=== PATIENT | female | born 2000 | race Caucasian/White ===

== ENCOUNTER 2025-03-31 09:56 | Inpatient (IN) | payer MEDICAID, OTHER ==
[~2025-03-31] VITALS: Ht 154.9 cm; Wt 40.8 kg
[2025-03-31] MEDS ORDERED: AMAN-24 PO (10:11)
[2025-03-31] MEDS ORDERED: ERGO500054 PO (10:11)
[2025-03-31] MEDS ORDERED: ASPI-1450 PO (10:11)
[2025-03-31] MEDS ORDERED: VALP250C48 PO (10:11)
[2025-03-31] MEDS ORDERED: GABA-1216 PO (10:11)
[2025-03-31] MEDS ORDERED: LEVO330T5 PO (10:11)
[2025-03-31] MEDS ORDERED: LEVE-71 PO (10:11)
[2025-03-31] MEDS ORDERED: QUET25TA PO ×2 (10:11)
[2025-03-31 10:17] LABS: PLATELET COUNT (AUTO) 172 K/uL (150-450); RED BLOOD CELL COUNT(AUTO) 4.95 MIL/uL (4.00-5.20); RED CELL DISTRIBUTION WIDTH 14.6 % (11.5-14.5); WHITE BLOOD COUNT (AUTO) 7.1 K/uL (4.5-11.0)
[2025-03-31 10:24] LABS: CALCIUM, TOTAL 9.5 mg/dL (8.8-10.5); CREATININE 0.83 mg/dL (0.60-1.30); GLOMERULAR FILTR. RATE CALC > 60 mL/min (>60); GLUCOSE,RANDOM 85 mg/dL (70-110); SODIUM SERUM 142 mmol/L (136-145); UREA NITROGEN, BLOOD 15 mg/dL (7-18)
[2025-03-31] MEDS ORDERED: ZOLPIDEM TARTRATE 5 MG TABLET PO PRN (12:15)
[2025-03-31 12:23] LABS: COVID AG,FIA SOURCE NASAL SWAB
[2025-03-31 12:44] LABS: SARS-COV2 (COVID) ANTIGEN,FIA Negative (Negative)
[2025-03-31 20:33] VITALS: O2SAT 96
[2025-03-31 21:59] VITALS: BP 92/78; PULSE 93; RESP 16; TEMP 97.6; O2SAT 100
[2025-04-01] MEDS ORDERED: DOCUSATE SODIUM 100 MG CAPSULE PO PRN (04:15)
[2025-04-01] MEDS ORDERED: MAGNESIUM HYDROXIDE SUSPENSION 30 ML UDCUP PO PRN (04:15)
[2025-04-01] MEDS ORDERED: PETROLATUM,WHITE 28 GM JELLY TP PRN (04:15)
[2025-04-01] MEDS ORDERED: ACETAMINOPHEN 325 MG TABLET PO PRN (04:15)
[2025-04-01] MEDS ORDERED: BACITRACIN 28 GM OINTMENT TP PRN (04:15)
[2025-04-01] MEDS ORDERED: IBUPROFEN 600 MG TABLET PO PRN (04:15)
[2025-04-01] MEDS ORDERED: BENZOCAINE/MENTHOL [CEPACOL] LOZENGE PO PRN (04:15)
[2025-04-01] MEDS ORDERED: ONDANSETRON 4 MG TABLET PO PRN (04:15)
[2025-04-01] MEDS ORDERED: LOPERAMIDE HCL 2 MG CAPSULE PO PRN (04:15)
[2025-04-01] MEDS ORDERED: ALBUTEROL SULFATE HFA 90 MCG/PUFF 8 GM INHALER IH PRN (04:15)
[2025-04-01] MEDS ORDERED: OMEPRAZOLE 20 MG CAPSULE PO PRN (04:15)
[2025-04-01] MEDS ORDERED: MAG HYDROX/ALUMINUM HYD/SIMETH ES 30 ML SUSPENSION UDCUP PO PRN (04:15)
[2025-04-01 08:20] LABS: CHOL/HDL RATIO 2.9 (3.9-5.7); LDL CHOL (CALC.) 77.0 mg/dL (0-130); VALPROIC ACID 17.0 mcg/mL (50-100)
[2025-04-01] MEDS: ASPIRIN 81 MG CHEWABLE TABLET PO SCH (08:59)
[2025-04-01] MEDS: CHOLECALCIFEROL (VIT D3) 50,000 UNITS [1,250 MCG] CAPSULE PO SCH (08:59)
[2025-04-01] MEDS: VALPROIC ACID 250 MG CAPSULE PO SCH (15:00)
[2025-04-01 15:42] VITALS: BP 108/73; PULSE 91; RESP 16; TEMP 98; O2SAT 98
[2025-04-01 21:37] VITALS: BP 89/58; PULSE 71; RESP 18; TEMP 98.2; O2SAT 98
[2025-04-02 09:04] VITALS: BP 89/62; PULSE 99; RESP 16; TEMP 98.2; O2SAT 99
[2025-04-02 15:49] LABS: APPEARANCE,URINE HAZY (CLEAR); GLUCOSE, URINE (UA) NEGATIVE (NEGATIVE); LEUKOCYTE ESTERASE ,URINE TRACE (NEGATIVE); NITRATE,URINE NEGATIVE (NEGATIVE); OCCULT BLOOD,URINE NEGATIVE (NEGATIVE); PH,URINE DRUG SCREEN 5.5 (5.0-8.0); SPECIFIC GRAVITIY, URINE 1.027 (1.003-1.030)
[2025-04-02 15:54] LABS: ALCOHOL, URINE DRUG SCREEN NEGATIVE (NEGATIVE); AMPHET/METH SCREEN,URINE NEGATIVE (NEGATIVE); BARBITURATE SCREEN, URINE NEGATIVE (NEGATIVE); CANNABINOID SCREEN,URINE NEGATIVE (NEGATIVE); COCAINE SCREEN,URINE NEGATIVE (NEGATIVE); METHADONE SCREEN, URINE NEGATIVE (NEGATIVE)
[2025-04-02 16:01] LABS: SQUAMOUS EPITHELIAL CELL,UR Few /LPF (None Seen)
[2025-04-02 21:46] VITALS: BP 91/59; PULSE 98; RESP 18; TEMP 97.7; O2SAT 98
[2025-04-03 10:01] VITALS: BP 105/74; PULSE 103; RESP 16; TEMP 97.9; O2SAT 98
[2025-04-03 21:14] VITALS: BP 101/62; PULSE 79; RESP 18; O2SAT 95
[2025-04-04 08:37] VITALS: BP 104/67; PULSE 83; RESP 16; TEMP 97.9; O2SAT 100
[2025-04-04] MEDS: LevOCARNitine 200 MG/ML 5 ML VIAL PO SCH (09:42)
[2025-04-04 22:58] VITALS: BP 102/66; PULSE 75; RESP 18; TEMP 98.5; O2SAT 98
[2025-04-05 10:05] VITALS: BP 91/53; PULSE 77; RESP 20; TEMP 98.6; O2SAT 98
[2025-04-05] MEDS ORDERED: [UNRECOGNIZED DRUG - CODE] PO (19:35)
[2025-04-05] MEDS ORDERED: VALP250C48 PO (19:35)
[2025-04-05] MEDS ORDERED: AMAN-24 PO (19:35)
[2025-04-05] MEDS ORDERED: ASPI-1450 PO (19:35)
[2025-04-05] MEDS ORDERED: LEVE-71 PO (19:35)
[2025-04-05] MEDS ORDERED: QUET100T34 PO (19:35)
[2025-04-05 20:10] VITALS: BP 95/55; PULSE 83; RESP 20; TEMP 97.7; O2SAT 99
[2025-04-06 08:25] VITALS: BP 101/61; PULSE 65; RESP 17; TEMP 97.7; O2SAT 97
== END 2025-04-06 12:44 | disposition home or self-care (01) | DRG 750 ==
LOC: EMS 09:59 → 3EC 20:48
PROVIDERS: ADMIT Psychiatry & Neurology Psychiatry; ATTEND Psychiatry & Neurology Psychiatry
PROC: GZHZZZZ Group Psychotherapy (ICD-10-PCS; 2025-04-01)
PROC: GZ52ZZZ Individual Psychotherapy, Cognitive (ICD-10-PCS; principal; 2025-04-04)
DX: F25.0 Schizoaffective disorder, bipolar type (principal); S12.9XXA Fracture of neck, unspecified, initial encounter; S32.9XXA Fracture of unspecified parts of lumbosacral spine and pelvis, initial encounter for closed fracture; G40.909 Epilepsy, unspecified, not intractable, without status epilepticus; F12.10 Cannabis abuse, uncomplicated; K59.00 Constipation, unspecified; F41.1 Generalized anxiety disorder; F32.A Depression, unspecified; G47.00 Insomnia, unspecified; Z91.199 Patient's noncompliance with other medical treatment and regimen due to unspecified reason; Z86.73 Personal history of transient ischemic attack (TIA), and cerebral infarction without residual deficits; Z79.899 Other long term (current) drug therapy; Z20.822 Contact with and (suspected) exposure to COVID-19
CPT/HCPCS: 72125; 80048; 80061; 80164; 80307; 81001; 83036; 84703; 85025; 87081; 99285; G0480; J1955